=== PATIENT | female | born 2005 | race Hispanic/Latino ===

== ENCOUNTER 2024-09-17 19:22 | Emergency (ER) | payer OTHER, SELFPAY ==
[2024-09-17 19:24] VITALS: BP 121/98
--- NOTE | 2024-09-17 20:52 | ED.SKININJ ---
HPI-Injury
General
Chief Complaint: Skin Problem
Source: patient
Exam Limitations: none
Time Seen by Provider: 09/17/24 19:35
Nursing documentation reviewed up to this point in time: agreed with
History of Present Illness-Injury
Initial Injury comments:
18 yo female with right upper arm infection.
Pt had tattoo procedure over the area on 08/29 and 09/09.
Denies fever/chills.
Pain is localized
Past History
Past History
ED Past Medical History: None
ED Past Surgical History: None
Social History
Tobacco: Non-smoker
Alcohol: None
Personal: Single
Living: with family
Review of Systems
Review of Systems
Allergies reviewed?: Yes
All Other Systems: ROS reviewed and negative except as documented in HPI and ROS
Constitutional: Denies fever
Skin: Reports other (sore area right upper arm at recent tattoo site)
Phy Exam
Physical Exam
Physical Exam:
PHYSICAL EXAMINATION:
General: no apparent distress, not acutely ill
Neuro: alert and oriented.
Psychiatric: well kept. interactive and cooperative
Musculoskeletal: Moves with ease
Skin: Warm, pink. There is a 1 cm tender raised area right mid deltoid, it is firm, round. No drainage. surrounding skin is normal
Course
Orders/Labs/Results
Orders:
Orders
09/17/24 20:48
Doxycycline [Vibramycin] 100 mg PO NOW STA
09/17/24 20:57
Tetanus/Diphth/Acelpertussis [Adacel] 0.5 ml IM .ONCE ONE
Vital Signs
Initial and Last Documented VS:
Initial Vital Signs
Temp Pulse Resp BP Pulse Ox
98.2 F 99 14 121/98 100
09/17/24 19:24 09/17/24 19:24 09/17/24 19:24 09/17/24 19:24 09/17/24 19:24
Last Documented Vital Signs
Temp Pulse Resp BP Pulse Ox
98.2 F 99 14 121/98 100
09/17/24 19:24 09/17/24 19:24 09/17/24 19:24 09/17/24 19:24 09/17/24 19:24
MDM/Problems Addressed
MDM/Problems Addressed:
18 yo female with right upper arm infection.
Pt had tattoo procedure over the area on 08/29 and 09/09.
Denies fever/chills.
Pain is localized
1 ml of lidocaine with epi injected, using sterile #11 blade, a 3 mm opening made, hard grainy center, no pus, consistent with infected cyst, not abscess.
Referred to general surgery
Given written rx for Doxycycline as she does not live in this area.
*Critical Care Note
Total Time (30-74mins, 75-104mins- exclusive of procedures): Not Applicable
ED Attending Note
-
Portions of this chart may have been created with voice recognition software.� Occasional wrong word or��sound alike� substitutions may have occurred due to the inherent limitations of voice recognition software.
Discharge Plan
Departure
Patient Disposition: Home (Routine Discharge)
Date of Disposition: 09/17/24
Time of Disposition: 20:47
Patient with high blood pressure during this ER visit?: No
Condition: Good
Discharge Problem:
Infected sebaceous cyst of skin
Instructions: Cellulitis (Skin Infection), Adult (DC)
Prescriptions:
New
doxycycline hyclate 100 mg capsule
100 mg PO BID Qty: 14 0RF
Referrals:
Reid Boucher MD [Active] - Next open appointment
UNKNOWN - PT DOES,NOT KNOW [Family Provider] -
Activity Restrictions/Additional Instructions:
As we discussed, you have an infected cyst.
Doxycycline antibiotic to take twice a day for 7 days
Call the general surgeons office Friday morning and make an appointment as it will probably have to be removed surgically
Interventions
Interventions:
*Risk Screen - Suicide Last Done: 09/17/24 19:24
*General Assessment Last Done: 09/17/24 19:24
*Neglect/Abuse Screening Last Done: 09/17/24 19:24
*ED COVID-19 Vaccine History Last Done: 09/17/24 19:48
*Nursing Disposition Last Done: 09/17/24 21:15
ED-Skin Assessment Last Done: 09/17/24 19:48
Discharge Date and Time
Discharge Date/Time: 09/17/24 21:15
Print Language: [id number]
[2024-09-17] MEDS: VIBRAMYCIN 100 MG PO (21:11)
[2024-09-17] MEDS: ADACEL 0.5 ML IM (21:12)
== END 2024-09-17 21:15 | disposition home or self-care (01) ==
LOC: EMR 19:22
PROVIDERS: EMERGENCY PHYSICIAN Emergency Medicine
DX: L08.9 Local infection of the skin and subcutaneous tissue, unspecified (principal); L72.3 Sebaceous cyst
CPT/HCPCS: 99282; 90471; 90715